=== PATIENT | female | born 1950 | race Caucasian/White ===

== ENCOUNTER 2022-04-15 10:05 | Inpatient (IN) | payer MEDICARE ==
[2022-04-12 15:56] LABS: BASOPHILS % (AUTO) 0.3 % (0-1); EOSINOPHILS % (AUTO) 0.4 % (0-6); LYMPHOCYTES # (AUTO) 1.1 X10'3 (1.1-4.8); LYMPHOCYTES % (AUTO) 13.3 % (21-51); MEAN CORPUSCULAR HEMOGLOBIN 31.8 PG (27.0-31.0); MEAN CORPUSCULAR HGB CONC 32.1 g/dL (33.0-36.5); MEAN CORPUSCULAR VOLUME 99.2 FL (78-98); MEAN PLATELET VOLUME 8.1 FL (7.4-10.4); MONOCYTES # (AUTO) 1.1 X10'3 (0-0.9); MONOCYTES % (AUTO) 13.8 % (2-12); NEUTROPHILS % (AUTO) 72.2 % (42-75); PRE OP HEMATOCRIT 39.5 % (35.0-45.0); PRE OP HEMOGLOBIN 12.7 g/dL (12.0-16.0); PRE OP PLATELET COUNT 254 X10'3 (140-440); RED BLOOD COUNT 3.98 X10'6 (4.20-5.60); RED CELL DISTRIBUTION WIDTH 15.7 % (11.5-14.5)
[2022-04-12 16:13] LABS: ALBUMIN/GLOBULIN RATIO 0.8 (1.1-1.5); ALKALINE PHOSPHATASE 105 IU/L (46-116); BLOOD UREA NITROGEN 12 MG/DL (7-18); BUN/CREATININE RATIO 11.9 (6.6-38.0); CALCIUM 8.9 MG/DL (8.5-10.1); CHLORIDE 106 MMOL/L (99-107); CREATININE 1.01 MG/DL (0.40-0.90); PRE OP ALT 24 U/L (30-65); PRE OP ANION GAP 12 (8-16); PRE OP AST 37 U/L (10-37); PRE OP BILIRUB, TOTAL 0.3 MG/DL (0.0-1.0); PRE OP GLUCOSE 101 MG/DL (70-104); PRE OP POTASSIUM 4.1 MMOL/L (3.4-5.1); PRE OP SODIUM 140 MMOL/L (135-145); TOTAL CARBON DIOXIDE 21.8 MMOL/L (24-32); eGFR 54 ML/MIN
[~2022-04-15] VITALS: Ht 162.6 cm; Wt 52.2 kg
[2022-04-15] VITALS (17 sets, daily range): BP systolic 88–135; BP diastolic 50–76
[~2022-04-15 10:05] MED LIST: ATOR40TA PO; IBUP-1984 PO; OMEP20TA43 PO; SUCR1TAB PO; ceFOXitin 2GM-NS 100mL ADDvant 100 ML IV ONE; famotidine 20mg tablet PO ONE; heparin, porcine 5000 units/ml vial SQ ONE; metroNIDAZOLE-Flagyl 500mg/NS 100ML IVPB IV ONE; ringers solution, lacted 1,000 ML IV SCH
[2022-04-15] MEDS ORDERED: LIDOCAINE 1%/EPI 1:100,000 inj. 10 ML multi-dose vial ONE ×2 (12:42→13:34)
[2022-04-15] MEDS ORDERED: tobramycin 40mg/ml inj ONE (12:42)
[2022-04-15] MEDS ORDERED: BUPIVAcaine/PF 2.5 mg/ml (0.25%) 30ml vial ONE (12:42)
[2022-04-15] MEDS ORDERED: midazolam 1 mg/ML 2ml injection ONE (13:04)
[2022-04-15] MEDS ORDERED: rocuronium 10mg/ml inj IV ONE (13:04)
[2022-04-15] MEDS ORDERED: fentaNYL /PF 50mcg/ml 5ml ampule ONE (13:04)
[2022-04-15] MEDS ORDERED: morphine 4 MG/ML inj SYRINge IV PRN (13:05)
[2022-04-15] MEDS ORDERED: meperidine/PF 25mg/ml syringe IV PRN ×3 (13:05)
[2022-04-15] MEDS ORDERED: ondansetron/PF 4mg/2ml inj IV PRN ×2 (13:05→15:35)
[2022-04-15] MEDS ORDERED: ringers solution, lacted 1,000 ML IV SCH (13:05)
[2022-04-15] MEDS ORDERED: proCHLORperazine 10 MG/2 ml inj IV PRN (13:05)
[2022-04-15] MEDS ORDERED: morphine 2 MG/ML inj. syringe IV PRN (13:05)
[2022-04-15] MEDS ORDERED: propofol inj 20 ML IV ONE (13:05)
[2022-04-15] MEDS ORDERED: sevoflurane 250ml liquid IH ONE (13:07)
[2022-04-15] MEDS ORDERED: ondansetron/PF 4mg/2ml inj ONE (15:11)
[2022-04-15] MEDS ORDERED: dexamethasone sod phosphate 4mg/ml inj. ONE (15:11)
[2022-04-15] MEDS ORDERED: acetaminophen 1,000mg/100ml IV 100 ML IV ONE (15:12)
[2022-04-15] MEDS ORDERED: neostigmine methylsulfate 1 MG/ML 10ml vial ONE (15:14)
[2022-04-15] MEDS ORDERED: glycopyrrolate 0.2mg/ml inj ONE (15:15)
--- NOTE | 2022-04-15 15:31 | NUR ---
Received from OR via HOSPITAL BED , accompanied by Anesthesiologist and report given by SIOBHAN Anesthesiologist. PATIENT WAKING UP, NO S/S OF PAIN, V/S WNL, SCD ON , PIV 20G RIGHT WRIST, DERMABONDED LAPS SITES X3 CLOSED CDI TO ABDOMEN. COLOSTOMY BAG ON LEFT ABDOMEN, STOMA IS MOIST AND PINK. FOX CATHETER DRAINING CLEAR YELLOW URINE. Addendum: 04/15/22 at 1600 by Gil Kirk RN Amended: Links added.
[2022-04-15] MEDS ORDERED: naloxone 0.4 mg/ml inj IV PRN (15:35)
--- NOTE | 2022-04-15 16:14 | NUR ---
Called Wound care to let them know that the patient has new wound care orders r/t new diverting colostomy. Left message as ordered.
--- NOTE | 2022-04-15 16:31 | NUR ---
PATIENT HAS MET ALL CRITERIA FOR TRANSFER TO THE SURGICAL FLOOR. VSS. DRESSINGS INTACT. BED LOW, CALL LIGHT PRESENT AND 2 RAILS UP. RN PRESENT TO ACCEPT CARE OF PATIENT AND REPORT HAS BEEN CALLED. ALL QUESTIONS ANSWERED TO ACCEPTING RN. Addendum: 04/15/22 at 1655 by Gil Kirk RN Amended: Links added.
[2022-04-15] MEDS ORDERED: dextrose 50%-water 50ml dispensing syringe IV PRN (16:35)
[2022-04-15] MEDS ORDERED: haloperidol 5mg tablet PO PRN (16:35)
[2022-04-15] MEDS ORDERED: LORazepam 2 mg/ml vial IV PRN (16:35)
[2022-04-15] MEDS ORDERED: haloperidol lactate 5mg/ml inj IM PRN (16:35)
[2022-04-15] MEDS: normal saline 1000ml 1,000 ML IV SCH (16:57)
--- NOTE | 2022-04-15 17:05 | NUR ---
PAGER ID: [phone] MESSAGE: [phone] RE: Amarilis Owens room 347A - do you still want the CT chest abdomen pelvis today? She got back from surgery around 1645.
[2022-04-15] MEDS: HYDROmorph/NS 0.2 mg/ml PCA 100 ML IV SCH ×4 (17:13→23:00)
--- NOTE | 2022-04-15 18:20 | NUR ---
Problems reprioritized. Patient report given, questions answered & plan of care reviewed with SHARDA Edouard.
--- NOTE | 2022-04-15 18:38 | NUR ---
Patient in room [facility]. I have received report from ARNALDO ROBIN and had the opportunity to ask questions and assume patient care.
[2022-04-15] MEDS: ceFOXitin inj 1,000 MG in normal saline 100ml IV soln 100 ML IV SCH (20:38)
[2022-04-15] MEDS: sennosides/docusate sodium tablet PO SCH (20:39)
[2022-04-15] MEDS: docusate sod 100mg capsule PO SCH (20:39)
[2022-04-15] MEDS: ketorolac tromethamine 15mg/ml inj. IV SCH (20:39)
[2022-04-15] MEDS: thiamine 100mg/ml 2ml inj. IV SCH (20:39)
[2022-04-15] MEDS: heparin, porcine 5000 units/ml vial SQ SCH (20:51)
[2022-04-15] MEDS: metroNIDAZOLE-Flagyl 500mg/NS 100 ML IV SCH (23:41)
[2022-04-16] MEDS: ceFOXitin inj 1,000 MG in normal saline 100ml IV soln 100 ML IV SCH (01:00)
[2022-04-16] MEDS: HYDROmorph/NS 0.2 mg/ml PCA 100 ML IV SCH ×7 (01:00→13:00)
[2022-04-16] MEDS: ketorolac tromethamine 15mg/ml inj. IV SCH ×4 (02:00→20:31)
[2022-04-16 02:39] VITALS: BP 100/59
[2022-04-16] MEDS: normal saline 1000ml 1,000 ML IV SCH (05:44)
[2022-04-16 06:00] VITALS: BP 92/57
--- NOTE | 2022-04-16 06:20 | NUR ---
Problems reprioritized. Patient report given, questions answered & plan of care reviewed with ARNALDO ROBIN.
--- NOTE | 2022-04-16 06:26 | NUR ---
Patient in room [facility] 347. I have received report from SHARDA Edouard and had the opportunity to ask questions and assume patient care.
[2022-04-16 06:36] VITALS: BP 92/57
[2022-04-16 07:24] LABS: ALBUMIN 2.4 G/DL (3.4-5.0); ANION GAP 8 (8-16); BLOOD UREA NITROGEN 16 MG/DL (7-18); BUN/CREATININE RATIO 12.1 (6.6-38.0); CALCIUM 7.8 MG/DL (8.5-10.1); CHLORIDE 106 MMOL/L (99-107); CREATININE 1.32 MG/DL (0.40-0.90); GLUCOSE 114 MG/DL (70-104); POTASSIUM 4.8 MMOL/L (3.5-5.1); SODIUM 136 MMOL/L (135-145); TOTAL CARBON DIOXIDE 21.7 MMOL/L (24-32); eGFR 39 ML/MIN
[2022-04-16] MEDS: metroNIDAZOLE-Flagyl 500mg/NS 100 ML IV SCH ×2 (07:35→16:23)
[2022-04-16] MEDS: docusate sod 100mg capsule PO SCH ×2 (07:35→20:27)
[2022-04-16] MEDS: sennosides/docusate sodium tablet PO SCH ×2 (07:35→20:28)
[2022-04-16] MEDS: heparin, porcine 5000 units/ml vial SQ SCH ×2 (07:38→20:29)
[2022-04-16] MEDS: thiamine 100mg/ml 2ml inj. IV SCH ×3 (07:39→20:31)
[2022-04-16] MEDS: folic acid 1mg/0.2ml inj IV SCH (07:40)
[2022-04-16 08:12] LABS: BASOPHILS % (AUTO) 0.1 % (0-1); EOSINOPHILS % (AUTO) 0 % (0-6); HEMATOCRIT 31.8 % (35.0-45.0); HEMOGLOBIN 10.4 g/dl (12.0-16.0); LYMPHOCYTES # (AUTO) 0.5 X10'3 (1.1-4.8); LYMPHOCYTES % (AUTO) 5.2 % (21-51); MEAN CORPUSCULAR HEMOGLOBIN 31.6 PG (27.0-31.0); MEAN CORPUSCULAR HGB CONC 32.7 g/dL (33.0-36.5); MEAN CORPUSCULAR VOLUME 96.8 FL (78-98); MEAN PLATELET VOLUME 8.5 FL (7.4-10.4); MONOCYTES # (AUTO) 0.8 X10'3 (0-0.9); MONOCYTES % (AUTO) 8.7 % (2-12); NEUTROPHILS # (AUTO) 7.5 X10'3 (1.8-7.7); PLATELET COUNT 192 X10'3 (140-440); RED BLOOD COUNT 3.29 X10'6 (4.20-5.60); RED CELL DISTRIBUTION WIDTH 15.5 % (11.5-14.5); WHITE BLOOD COUNT 8.7 X10'3 (4.5-11.0)
[2022-04-16] MEDS ORDERED: iohexol 300mg/ml 100ml inj. ONE (08:32)
[2022-04-16 10:00] VITALS: BP 117/57
--- NOTE | 2022-04-16 13:02 | NUR ---
PRESSURE ULCER EDUCATION: DEFINITION: A pressure ulcer is an area of skin that breaks down when you stay in one position too long. The constant pressure against the skin reduces the blood flow to that area and the affected tissue dies. CAUSES: "Being bedridden or in a wheelchair "Fragile skin "Having a chronic condition, such as diabetes or vascular disease "Inability to move certain parts of your body without assistance "Older age "Incontinence of urine or stool SYMPTOMS: "A reddened area that DOES NOT turn white when pressed on - this can be the beginning of a pressure ulcer "A blister, deep sore or a crater - these can be advanced pressure ulcers FIRST AID: "Relieve the pressure on this area "Keep the area clean and dry "Call your primary doctor if you see any of the above symptoms "DO NOT massage the area "DO NOT use a donut shaped or ring shaped pillow- these actually interfere with the blood flow and cause complications PREVENTION: "Check for pressure ulcers everyday "Change position at least every two hours to relieve pressure "Use items that help relieve pressure- pillows, sheepskin, foam padding, and powders. "Keep skin clean and dry "Eat healthy well balanced meals "Exercise daily IF YOU SEE ANY OF THESE SYMPTOMS WHILE IN THE HOSPITAL - TELL YOUR NURSE IMMEDIATELY. IF YOU SEE ANY OF THESE SYMPTOMS WHILE AT HOME OR HAVE ANY QUESTIONS OR CONCERNS ABOUT PRESSURE ULCERS - CALL YOUR PRIMARY DOCTOR IMMEDIATELY. Addendum: 04/16/22 at 1302 by Mesha Travis LVN Amended: Links added.
[2022-04-16] MEDS ORDERED: HYDROcodone/acetaminophen 5mg/325mg tablet PO PRN (16:15)
[2022-04-16] MEDS ORDERED: PCA WASTE DOCUMENTATION MC SCH (16:40)
[2022-04-16 18:00] VITALS: BP 94/62
--- NOTE | 2022-04-16 18:33 | NUR ---
Problems reprioritized. Patient report given, questions answered & plan of care reviewed with SHARDA Edouard.
[2022-04-16 22:50] VITALS: BP 93/49
[2022-04-17] MEDS: metroNIDAZOLE-Flagyl 500mg/NS 100 ML IV SCH ×2 (00:38→08:07)
[2022-04-17] MEDS: ketorolac tromethamine 15mg/ml inj. IV SCH ×4 (01:56→20:39)
--- NOTE | 2022-04-17 05:26 | NUR ---
Student documentation: I have reviewed and agree with all interventions, assessments performed and documented by SHIRIN PHILLIPS.
--- NOTE | 2022-04-17 05:27 | NUR ---
Student Medication Administration: For this medication-pass time frame, all medication were reviewed, dispensed, administered and documented per hospital policy by SHIRIN PHILLIPS.
[2022-04-17 06:00] VITALS: BP 104/65
--- NOTE | 2022-04-17 06:27 | NUR ---
Problems reprioritized. Patient report given, questions answered & plan of care reviewed with ARNALDO ROBIN.
--- NOTE | 2022-04-17 06:40 | NUR ---
Patient in room [facility] 347. I have received report from SHARDA Edouard and had the opportunity to ask questions and assume patient care.
[2022-04-17 06:43] LABS: BASOPHILS % (AUTO) 0.2 % (0-1); EOSINOPHILS # (AUTO) 0.1 X10'3 (0-0.9); EOSINOPHILS % (AUTO) 1.3 % (0-6); HEMOGLOBIN 9.4 g/dl (12.0-16.0); LYMPHOCYTES # (AUTO) 1.1 X10'3 (1.1-4.8); LYMPHOCYTES % (AUTO) 17.7 % (21-51); MEAN CORPUSCULAR HEMOGLOBIN 31.7 PG (27.0-31.0); MEAN CORPUSCULAR HGB CONC 33.3 g/dL (33.0-36.5); MEAN CORPUSCULAR VOLUME 94.9 FL (78-98); MEAN PLATELET VOLUME 7.9 FL (7.4-10.4); MONOCYTES # (AUTO) 0.6 X10'3 (0-0.9); MONOCYTES % (AUTO) 9.7 % (2-12); NEUTROPHILS # (AUTO) 4.2 X10'3 (1.8-7.7); NEUTROPHILS % (AUTO) 71.1 % (42-75); PLATELET COUNT 162 X10'3 (140-440); RED BLOOD COUNT 2.95 X10'6 (4.20-5.60); RED CELL DISTRIBUTION WIDTH 15.7 % (11.5-14.5); WHITE BLOOD COUNT 5.9 X10'3 (4.5-11.0)
[2022-04-17 06:47] LABS: ALBUMIN 2.1 G/DL (3.4-5.0); ANION GAP 10 (8-16); BLOOD UREA NITROGEN 17 MG/DL (7-18); BUN/CREATININE RATIO 18.3 (6.6-38.0); CALCIUM 7.8 MG/DL (8.5-10.1); CHLORIDE 110 MMOL/L (99-107); CREATININE 0.93 MG/DL (0.40-0.90); GLUCOSE 100 MG/DL (70-104); POTASSIUM 3.5 MMOL/L (3.5-5.1); SODIUM 141 MMOL/L (135-145); TOTAL CARBON DIOXIDE 20.7 MMOL/L (24-32); eGFR 59 ML/MIN
[2022-04-17] MEDS: thiamine 100mg/ml 2ml inj. IV SCH ×3 (08:07→20:39)
[2022-04-17] MEDS: docusate sod 100mg capsule PO SCH ×2 (08:08→20:36)
[2022-04-17] MEDS: sennosides/docusate sodium tablet PO SCH ×2 (08:09→20:36)
[2022-04-17] MEDS: folic acid 1mg/0.2ml inj IV SCH (08:10)
[2022-04-17 10:00] VITALS: BP 135/78
[2022-04-17 10:43] LABS: CANCER ANTIGEN 125 22.5 U/mL (0.0-38.1); CARCINOEMBRYONIC ANTIGEN 5.1 ng/mL (0.0-4.7)
[2022-04-17] MEDS ORDERED: LORazepam 2 mg/ml vial IV PRN (16:35)
[2022-04-17] MEDS ORDERED: LORazepam 1 MG tablet PO PRN (16:35)
[2022-04-17 18:00] VITALS: BP 106/72
--- NOTE | 2022-04-17 18:27 | NUR ---
Problems reprioritized. Patient report given, questions answered & plan of care reviewed with SHARDA Edouard.
--- NOTE | 2022-04-17 18:56 | NUR ---
Problems reprioritized. Patient report given, questions answered & plan of care reviewed with ARNALDO ROBIN.
[2022-04-17] MEDS ORDERED: atorvastatin 20mg tablet PO SCH (21:00)
[2022-04-17] MEDS ORDERED: sucralfate 1 gm tablet PO SCH (21:00)
[2022-04-17] MEDS ORDERED: mag hydrox/Alum hydrox/simeth 30ml oral suspension PO PRN (21:05)
[2022-04-17 22:00] VITALS: BP 120/70
--- NOTE | 2022-04-18 00:57 | NUR ---
Student Medication Administration: For this medication-pass time frame, all medication were reviewed, dispensed, administered and documented per hospital policy by SHIRIN PHILLIPS.
--- NOTE | 2022-04-18 00:57 | NUR ---
Student documentation: I have reviewed and agree with all interventions, assessments performed and documented by SHIRIN PHILLIPS.
[2022-04-18] MEDS: ketorolac tromethamine 15mg/ml inj. IV SCH ×2 (01:43→08:32)
[2022-04-18 06:00] VITALS: BP 132/84
--- NOTE | 2022-04-18 06:32 | NUR ---
Problems reprioritized. Patient report given, questions answered & plan of care reviewed with SHERIE ROBIN.
[2022-04-18 06:39] LABS: BASOPHILS % (AUTO) 0.4 % (0-1); EOSINOPHILS # (AUTO) 0.1 X10'3 (0-0.9); EOSINOPHILS % (AUTO) 2.4 % (0-6); HEMOGLOBIN 9.8 g/dl (12.0-16.0); LYMPHOCYTES % (AUTO) 16.5 % (21-51); MEAN CORPUSCULAR HEMOGLOBIN 31.7 PG (27.0-31.0); MEAN CORPUSCULAR HGB CONC 33.8 g/dL (33.0-36.5); MEAN CORPUSCULAR VOLUME 93.8 FL (78-98); MEAN PLATELET VOLUME 8.2 FL (7.4-10.4); MONOCYTES # (AUTO) 0.7 X10'3 (0-0.9); MONOCYTES % (AUTO) 11.5 % (2-12); NEUTROPHILS # (AUTO) 4.1 X10'3 (1.8-7.7); NEUTROPHILS % (AUTO) 69.2 % (42-75); PLATELET COUNT 165 X10'3 (140-440); RED CELL DISTRIBUTION WIDTH 15.6 % (11.5-14.5); WHITE BLOOD COUNT 5.9 X10'3 (4.5-11.0)
[2022-04-18 07:05] LABS: ALBUMIN 2.1 G/DL (3.4-5.0); ANION GAP 10 (8-16); BLOOD UREA NITROGEN 15 MG/DL (7-18); BUN/CREATININE RATIO 23.4 (6.6-38.0); CALCIUM 7.9 MG/DL (8.5-10.1); CHLORIDE 110 MMOL/L (99-107); CREATININE 0.64 MG/DL (0.40-0.90); GLUCOSE 87 MG/DL (70-104); POTASSIUM 3.6 MMOL/L (3.5-5.1); SODIUM 141 MMOL/L (135-145); TOTAL CARBON DIOXIDE 21.5 MMOL/L (24-32); eGFR > 90 ML/MIN
[2022-04-18] MEDS ORDERED: pantoprazole 40mg Tablet.DR PO SCH (07:30)
[2022-04-18] MEDS: sennosides/docusate sodium tablet PO SCH (08:00)
[2022-04-18] MEDS: thiamine 100mg/ml 2ml inj. IV SCH (08:32)
[2022-04-18] MEDS: folic acid 1mg/0.2ml inj IV SCH (08:33)
[2022-04-18 10:00] VITALS: BP 124/77
[2022-04-18] MEDS ORDERED: HYDROcodone/acetaminophen 5mg/325mg tablet PO ONE (10:05)
--- NOTE | 2022-04-18 10:18 | NUR ---
Per Dr White ok for Dr Rothman to discharge patient. Have patient follow up in office and if she does not already have an appt have her call the office on Tuesday. Ok to shower. No lifting over 10 pounds, Call office if she developes chills, fever, nausea vomiting or infection at ostomy site. Dr Rothman aware
[2022-04-18] MEDS ORDERED: HYDR-3964 PO (10:38)
[2022-04-18] MEDS ORDERED: HYDR-3965 PO (10:47)
--- NOTE | 2022-04-18 11:31 | NUR ---
Patient coming back to hospital for [facility] script.
--- NOTE | 2022-04-18 11:42 | NUR ---
Patient discharge instructions reviewed with patient and patient verbalized understanding. Patient verbalized understanding. Patient IV dc'd cannula intact. Patient states she has all her belongings. Patient was taken to family vehicle via wheelchair.
[2022-04-19] MEDS ORDERED: LORazepam 2 mg/ml vial IV PRN (16:35)
[2022-04-19] MEDS ORDERED: LORazepam 1 MG tablet PO PRN (16:35)
[2022-04-20] MEDS ORDERED: thiamine 100mg tablet PO SCH (08:00)
[2022-04-20] MEDS ORDERED: folic acid 1mg tablet PO SCH (08:00)
== END 2022-04-18 11:42 | disposition home or self-care (01) | DRG 330 ==
LOC: PAS IN 10:05 → SUR 3N 16:48
PROVIDERS: ADMIT Colon & Rectal Surgery; ATTEND Colon & Rectal Surgery
PROC: 0UBG4ZX Excision of Vagina, Percutaneous Endoscopic Approach, Diagnostic (ICD-10-PCS; 2022-04-15)
PROC: 0FB13ZX Excision of Right Lobe Liver, Percutaneous Approach, Diagnostic (ICD-10-PCS; 2022-04-15)
PROC: 0DBP4ZX Excision of Rectum, Percutaneous Endoscopic Approach, Diagnostic (ICD-10-PCS; 2022-04-15)
PROC: 8E0W4CZ Robotic Assisted Procedure of Trunk Region, Percutaneous Endoscopic Approach (ICD-10-PCS; 2022-04-15)
PROC: 0D1N4Z4 Bypass Sigmoid Colon to Cutaneous, Percutaneous Endoscopic Approach (ICD-10-PCS; principal; 2022-04-15 13:07)
DX: C20 Malignant neoplasm of rectum (principal); C78.7 Secondary malignant neoplasm of liver and intrahepatic bile duct; N82.3 Fistula of vagina to large intestine; M48.54XA Collapsed vertebra, not elsewhere classified, thoracic region, initial encounter for fracture; S36.113A Laceration of liver, unspecified degree, initial encounter; S27.808A Other injury of diaphragm, initial encounter; F10.20 Alcohol dependence, uncomplicated; E78.5 Hyperlipidemia, unspecified; R32 Unspecified urinary incontinence; K21.9 Gastro-esophageal reflux disease without esophagitis; R16.0 Hepatomegaly, not elsewhere classified; Z79.899 Other long term (current) drug therapy
CPT/HCPCS: 36415; 71260; 74177; 80048; 80053; 82378; 82948; 85025; 86301; 86304; 86885; 86900; 86901; 87081; 88305; 88307; 93005; A4402; A4421; A4618; A7000; C1758; G0378; J0131; J0694; J1100; J1170; J1644; J1885; J2175; J2250; J2405; J2704; J2710; J3010; J3260; J3411; J3490; J7030; J7120; Q9967

== ENCOUNTER 2022-05-03 10:40 | Day surgery (SDC) | payer MEDICARE ==
[~2022-05-03] VITALS: Ht 162.6 cm; Wt 53.0 kg
[~2022-05-03 10:40] MED LIST changes: +HYDR-3965 PO; -ceFOXitin 2GM-NS 100mL ADDvant 100 ML IV ONE; -famotidine 20mg tablet PO ONE; -heparin, porcine 5000 units/ml vial SQ ONE; -metroNIDAZOLE-Flagyl 500mg/NS 100ML IVPB IV ONE; -ringers solution, lacted 1,000 ML IV SCH
[2022-05-03] MEDS ORDERED: normal saline 1000ml 1,000 ML IV PRN (11:00)
[2022-05-03 11:24] VITALS: BP 106/69
[2022-05-03] MEDS ORDERED: FENTANYL CITRATE/PF 50 MCG/1 ML VIAL ONE ×2 (14:11→14:14)
[2022-05-03] MEDS ORDERED: heparin sodium, porcine/PF 100unit/ml 5ML syringe ONE (14:11)
[2022-05-03] MEDS ORDERED: LIDOcaine 1% 30ml preserv. free vial ONE (14:12)
[2022-05-03] MEDS ORDERED: midazolam 1 mg/ML 2ml injection ONE (14:12)
[2022-05-03 15:01] VITALS: BP 122/78
[2022-05-03 15:25] VITALS: BP 125/72
[2022-05-03 15:40] VITALS: BP 106/73
== END 2022-05-03 16:12 | disposition home or self-care (01) ==
LOC: SSTAY O 10:40
PROVIDERS: ATTEND Radiology Vascular & Interventional Radiology
DX: C20 Malignant neoplasm of rectum (principal); Z79.899 Other long term (current) drug therapy
CPT/HCPCS: 36561; 76937; 77001; 99152; 99153; C1769; C1788; C1894; J1642; J2250; J3010; J3490; J7030; A4620